=== PATIENT | male | born 1955 | race Caucasian/White ===

== ENCOUNTER 2020-06-18 08:30 | Day surgery (SDC) | payer MEDICARE, OTHER ==
[2020-06-16 12:32] VITALS: BMI 33.7
[2020-06-18] MEDS ORDERED: PROPOFOL 20 ML ONE (09:48)
[2020-06-18] MEDS ORDERED: Bupivacaine 0.25% HCL 30 ML VIAL ONE (10:32)
[2020-06-18] MEDS ORDERED: EPINEPHrine 1 MG/ML AMP ONE (10:32)
[2020-06-18] MEDS ORDERED: Fentanyl 100 MCG/2 ML VIAL ONE (10:43)
--- NOTE | 2020-06-18 21:16 | OP ---
DATE OF PROCEDURE: 06/18/2020 PREOPERATIVE DIAGNOSIS: Right knee posterior horn degenerative medial meniscus tear. POSTOPERATIVE DIAGNOSES: 1. Right knee posterior horn degenerative medial meniscus tear. 2. 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 PROCEDURE PERFORMED: Right knee arthroscopy with partial medial meniscectomy. LEAD INSTALLER: None. ESTIMATED BLOOD LOSS: Minimal. COMPLICATIONS: None ANESTHESIA: The patient had a general anesthetic as well as a local knee block. DISPOSITION: He went to recovery room in stable condition. INDICATIONS: This is a 64-year-old active male, who has had problems with catching, swelling, and pain in the knee. MRI scan showed him to have a large tear of the posterior horn medial meniscus with a flap component. At this time, he opted to have surgery. DESCRIPTION OF PROCEDURE: After all appropriate consent forms were explained and signed, he was taken to the operating room and at this time was given general anesthetic. Once the level of anesthesia was appropriate, a tourniquet was placed on the right thigh. Leg was placed in arthroscopic leg grimes. The limb was then prepped and draped in standard surgical fashion. Limb was exsanguinated and tourniquet was taken to 300 mmHg. Inferolateral portal was established. Scope was placed into the knee joint. A needle localization technique was then used to make a medial working portal. Diagnostic arthroscopy commenced in the notch. ACL and PCL were probed, found to be intact. The medial compartment was evaluated. The femur did have some grade 2 changes. No unstable chondral flaps were noted. There was a significant degenerative tear of the posterior horn going into the body of the medial meniscus and a partial meniscectomy was performed using meniscal biter and shaver back to a stable base. There was a large flap component that went to the meniscal tibial recess, which was taken care of. On the tibial side unfortunately, there was some significant grade 3 and 4 changes. There were some unstable chondral flaps, especially around the grade 4 area and any loose cartilage was removed with the shaver being careful not to disturb any of the remaining cartilage. Lateral compartment was evaluated. Unfortunately, it looked pretty good. As far as the cartilage on the femur and tibia, the meniscus was intact as well. The gutters were swept through. No loose bodies were noted. Patellofemoral joint showed good cartilage on the trochlea. The patella had some grade 2 changes. At this time, scope was removed. Knee was drained. Portals were closed with simple nylon stitch. Bulky sterile dressing was applied. Tourniquet was let down. Toes pinked up nicely. The patient was awakened. He was taken to the recovery room in stable condition. All counts were correct at the end of the case and he did receive preoperative IV antibiotics. Job ID: [id number]
== END 2020-06-18 13:40 | disposition home or self-care (01) ==
LOC: SDC 08:30
PROVIDERS: ATTEND Orthopaedic Surgery
PROC: 0SBC4ZZ Excision of Right Knee Joint, Percutaneous Endoscopic Approach (ICD-10-PCS; principal; 2020-06-18)
DX: M23.221 Derangement of posterior horn of medial meniscus due to old tear or injury, right knee (principal); M22.41 Chondromalacia patellae, right knee; I10 Essential (primary) hypertension; E78.5 Hyperlipidemia, unspecified; E11.9 Type 2 diabetes mellitus without complications; Z79.82 Long term (current) use of aspirin; Z79.84 Long term (current) use of oral hypoglycemic drugs; Z79.899 Other long term (current) drug therapy; Z95.1 Presence of aortocoronary bypass graft
CPT/HCPCS: J0171; J0690; J2704; J3010; S0020

== ENCOUNTER 2023-01-04 10:22 | Emergency (ER) | payer MEDICARE, OTHER ==
[2023-01-04] MEDS ORDERED: Ketorolac Tromethamine 30 MG/ML VIAL ONE (11:57)
== END 2023-01-04 12:34 | disposition home or self-care (01) ==
LOC: ERS 10:22
DX: S20.214A Contusion of middle front wall of thorax, initial encounter (principal); E11.40 Type 2 diabetes mellitus with diabetic neuropathy, unspecified; I10 Essential (primary) hypertension; Z79.82 Long term (current) use of aspirin; W17.89XA Other fall from one level to another, initial encounter; Y93.89 Activity, other specified
CPT/HCPCS: 71045; 96372; J1885